=== PATIENT | female | born 1960 | race Caucasian/White ===

== ENCOUNTER → 2020-07-11 | Outpatient (CLI) | payer BC | END | disposition home or self-care (01) | LOC: US 06-22 11:00 | DX: R92.2 Inconclusive mammogram (principal) | CPT/HCPCS: 76641-LT; 76641-RT ==

== ENCOUNTER → 2020-07-24 | Outpatient (CLI) | payer BC ==
[2020-07-24 09:10] LABS: BUN/CREATININE RATIO 17 (0-10)
== END ==
LOC: LAB 08:23
PROVIDERS: Nurse Practitioner Family
DX: E78.5 Hyperlipidemia, unspecified (principal)
CPT/HCPCS: 36415; 80053; 80061

== ENCOUNTER → 2020-08-01 | Outpatient (CLI) | payer BC | LOC: EXRD 09:04 | DX: Z13.820 Encounter for screening for osteoporosis (principal); M85.852 Other specified disorders of bone density and structure, left thigh | CPT/HCPCS: 77080 ==

== ENCOUNTER → 2021-01-22 | Outpatient (CLI) | payer BC ==
[2021-01-22 08:43] LABS: HEMOGLOBIN 13.6 gm/dl (12.3-15.3); RED BLOOD COUNT 4.59 M/UL (4.00-5.10); WHITE BLOOD COUNT 6.3 K/UL (4.5-11.0)
[2021-01-23 07:11] LABS: VITAMIN D, 25-HYDROXY 38.2 ng/mL (30.0-100.0)
[2021-01-25 16:14] LABS: ALPHA-1-ANTITRYPSIN, SERUM 110 mg/dL (101-187)
== END ==
LOC: LAB 08:22
PROVIDERS: Nurse Practitioner Family
DX: Z83.49 Family history of other endocrine, nutritional and metabolic diseases (principal)
CPT/HCPCS: 36415; 80053; 80061; 82103; 82104; 82607; 84439; 84443; 85025

== ENCOUNTER → 2021-04-24 | Outpatient (CLI) | payer BC | LOC: LAB 08:17 | PROVIDERS: Nurse Practitioner Family | DX: R94.4 Abnormal results of kidney function studies (principal) | CPT/HCPCS: 36415; 80053 ==

== ENCOUNTER → 2021-08-29 | Outpatient (CLI) | payer BC ==
[2021-08-29 09:09] LABS: HEMOGLOBIN 13.1 gm/dl (12.3-15.3); RED BLOOD COUNT 4.5 M/UL (4.00-5.10); WHITE BLOOD COUNT 6.1 K/UL (4.5-11.0)
[2021-08-30 06:11] LABS: A/G RATIO 1.5 (1.2-2.2); ALKALINE PHOSPHATASE, S 113 IU/L (44-121); ALT (SGPT) 19 IU/L (0-32); AST (SGOT) 21 IU/L (0-40); BILIRUBIN, TOTAL 0.2 mg/dL (0.0-1.2); BUN 16 mg/dL (8-27); BUN/CREATININE RATIO 18 (12-28); CALCIUM, SERUM 9.7 mg/dL (8.7-10.3); CARBON DIOXIDE, TOTAL 22 mmol/L (20-29); CHLORIDE, SERUM 104 mmol/L (96-106); CHOLESTEROL, TOTAL 165 mg/dL (100-199); CREATININE, SERUM 0.91 mg/dL (0.57-1.00); EGFR IF AFRICN AM 79 (>59); EGFR IF NONAFRICN AM 69 (>59); GLOBULIN, TOTAL 2.9 g/dL (1.5-4.5); GLUCOSE, SERUM 91 mg/dL (65-99); HDL CHOLESTEROL 68 mg/dL (>39); LDL CHOLESTEROL CALC 82 mg/dL (0-99); LDL/HDL RATIO 1.2 ratio (0.0-3.2); POTASSIUM, SERUM 4.5 mmol/L (3.5-5.2); PROTEIN, TOTAL, SERUM 7.2 g/dL (6.0-8.5); SODIUM, SERUM 141 mmol/L (134-144); T. CHOL/HDL RATIO 2.4 ratio (0.0-4.4); TRIGLYCERIDES 81 mg/dL (0-149); VITAMIN D, 25-HYDROXY 39.4 ng/mL (30.0-100.0)
== END ==
LOC: LAB 08:04
PROVIDERS: Nurse Practitioner Family
DX: E78.5 Hyperlipidemia, unspecified (principal); R94.4 Abnormal results of kidney function studies
CPT/HCPCS: 36415; 80053; 80061; 82570; 82607; 84156; 84439; 84443; 85025

== ENCOUNTER 2021-11-26 15:53 | Observation (INO) | payer BC ==
[~2021-11-26] VITALS: Ht 170.2 cm; Wt 73.9 kg
[2021-11-26 16:55] LABS: RED BLOOD COUNT 4.06 M/UL (4.00-5.10); WHITE BLOOD COUNT 11.6 K/UL (4.5-11.0)
[2021-11-26 17:21] LABS: BUN/CREATININE RATIO 22 (0-10)
[2021-11-26] MEDS ORDERED: FLONASE 0.05% N16 GM (23:32)
[2021-11-26] MEDS ORDERED: ATORVASTATIN CA10 MG PO (23:32)
[2021-11-26] MEDS ORDERED: CLARITIN10 MG PO (23:34)
[2021-11-28 06:33] LABS: HEMOGLOBIN 10.5 gm/dl (12.3-15.3)
[2021-11-28 06:39] LABS: RED BLOOD COUNT 3.59 M/UL (4.00-5.10); WHITE BLOOD COUNT 8.2 K/UL (4.5-11.0)
[2021-11-28 07:03] LABS: BUN/CREATININE RATIO 8 (0-10)
[2021-11-28] MEDS ORDERED: LEVOFLOXACIN750 MG PO (12:16)
== END 2021-11-28 15:20 | disposition home health service (06) ==
LOC: ER1 15:53 → CDU 18:14 → MED SURG 4 18:14
PROVIDERS: Physician Assistant; ADMIT Internal Medicine
DX: A41.9 Sepsis, unspecified organism (principal); N30.00 Acute cystitis without hematuria; B96.20 Unspecified Escherichia coli [E. coli] as the cause of diseases classified elsewhere; E86.0 Dehydration; I10 Essential (primary) hypertension; E78.5 Hyperlipidemia, unspecified
CPT/HCPCS: 36415; 71045; 80053; 81001; 83605; 85025; 87040; 87077; 87086; 87186; 96372; 96374; 96376; 99285; G0378; J0696; J1650; J7030